=== PATIENT | male | born 1975 | race Caucasian/White ===

== ENCOUNTER 2023-06-22 06:11 | Day surgery (SDC) | payer BC, SELFPAY ==
[2023-06-22 06:27] VITALS: BMI 27.7
[2023-06-22 06:31] VITALS: BP 134/94; PULSE 68; RESP 16; TEMP 37.1; O2SAT 96
[2023-06-22] MEDS: SODIUM CHLORIDE 0.9 % (FLUSH) 10 ML SYRINGE IVF (06:45)
[2023-06-22] MEDS: LACTATED RINGERS 1000 ML 1,000 ML 100 ML IV (06:45)
[2023-06-22] MEDS: CEFAZOLIN 2 GM INJ IVP (07:45)
[2023-06-22] MEDS: BUPIVACAINE 0.25% 30 ML INJECTION (07:54)
--- NOTE | 2023-06-22 08:47 | W.ANESCHARGE ---
Anesthesia Charges Start Date/Time Anesthesia Start Date: 06/22/23 Anesthesia Start Time: 07:32 Stop Date/Time Anesthesia Stop Date: 06/22/23 Anesthesia Stop Time: 08:58
[2023-06-22 08:55] VITALS: BP 114/74; PULSE 85; RESP 16; TEMP 36.9; O2SAT 96
--- NOTE | 2023-06-22 08:57 | P.GSOP_ITS ---
Operative Note Pre-op diagnosis: 1. Right upper back lipoma 2. Right forearm cyst Post-op diagnosis: SAme Type of Procedure: 1. Excision of back lipoma 2. Excision of right forearm cyst Indications: Patient presented to clinic with complaints of an enlarging mass of his right upper back and a mass on his right forearm. Please see consultation note for full discussion. Risks and benefits of operative intervention were discussed at length with the patient. Risks included but was not limited to: Bleeding, infection, risk of damage to surrounding structures, possible need for addition al procedures, risk of recurrence and postoperative complications such as pneumonia, pulmonary emboli or LA. All questions and concerns were addressed with the patient agreeing to proceed. Procedure Description: After discussing the risks and benefits of the procedure, the patient signed informed consent.? The operative site was marked and the patient was brought to the operating room and placed on the operating table in supine position.? Care was taken to pad the patient's pressure points.?? The patient was then given sedation by anesthesia.?? The operative site was then prepped and draped in the usual sterile fashion.? A time-out was then performed. Patient was placed lateral decubitus with right side up. Local anesthetic was used to anesthetize the surgical field. A 4 cm vertical incision was made directly over the mass. Dissection was carried down with electrocautery through subcutaneous tissues. A well encapsulated lipoma was encountered and circumferentially dissected out. The mass was overlying the underlying muscles, but not involving it. The mass was measured to be 10 x 5 x 1 cm in size. The specimen was then passed off to be sent to pathology. Hemostasis was assured with electrocautery. The incision was closed in layers with deep interrupted 2 0 Vicryl, interrupted 3 0 Vicryl and running 4-0 Monocryl subcuticular stitch. Steri-Strips were applied. Patient was then returned patient and the right forearm prepped and draped in sterile fashion. A 1 cm vertical incision was made directly over the underlying mass. The subcutaneous tissue was sharply dissected. A well encapsulated cyst was encountered and circumferentially dissected out. It measured about 1 cm in size and was passed off to be sent to pathology. Hemostasis was assured with electrocautery. The incision was closed in layers with interrupted 3 0 Vicryl and running 4-0 Monocryl subcuticular stitch. Steri-Strips were applied. ? The patient was then woken and transported to the recovery area in stable condition. ? The patient tolerated the procedure well. Findings: 1. Right upper back lipoma, 10 x 5 x 1 cm in size 2. Forearm cyst, 1 cm in size Anesthesia: MAC and local Surgeon: Marly Jeffrey MD Estimated blood loss (mL): 5 Additional Specimen Information: 1. Right upper back lipoma 2. Right forearm cyst Condition: stable Disposition: same day Date of procedure: 06/22/23
--- NOTE | 2023-06-22 08:59 | W.ANESCHARGE ---
Anesthesia Charges Start Date/Time Anesthesia Start Date: 06/22/23 Anesthesia Start Time: 07:32 Stop Date/Time Anesthesia Stop Date: 06/22/23 Anesthesia Stop Time: 08:58
[2023-06-22 09:15] VITALS: BP 116/83; PULSE 63; RESP 16; O2SAT 96
[2023-06-22 09:30] VITALS: BP 117/78; PULSE 65; RESP 16; O2SAT 97
[2023-06-22 09:45] VITALS: BP 120/82; PULSE 60; RESP 16; O2SAT 96
[2023-06-22] MEDS: KETOROLAC 15 MG/ML inj IVP (10:00)
== END 2023-06-22 10:24 | disposition home or self-care (01) ==
PROVIDERS: PCP Family Medicine; Visit Provider Surgery
PROC: (CPT 21931; principal; 2023-06-22 07:30)
DX: D17.1 Benign lipomatous neoplasm of skin and subcutaneous tissue of trunk (principal); L72.11 Pilar cyst
CPT/HCPCS: 21931; 11401; 12031; 00300; 88304; 88305; J0665; J0690; J1100; J1885; J2250; J2405; J2704; J3010; J7120